=== PATIENT | male | born 1960 ===

== ENCOUNTER 2022-02-15 15:12 | Emergency (ER) | payer SELFPAY ==
[2022-02-15 15:17] VITALS: BP 108/60
[2022-02-15 17:07] LABS: Hematocrit 49.4 % (35.5-45.6); Hemoglobin 16.3 gm/dl (11.8-15.2); Mean Corpuscular HGB Conc 33 % (32-34); Mean Corpuscular Volume 101 fl (84-94); Platelet Count 277 K/mm3 (140-440); Red Blood Count 4.89 M/mm3 (3.65-5.03); Red Cell Distribution Width 12.8 % (13.2-15.2)
[2022-02-15 17:33] LABS: Alanine Aminotransferase 17 units/L (7-56); Albumin 4.7 g/dL (3.9-5); BUN/Creatinine Ratio 9; Blood Urea Nitrogen 7 mg/dL (9-20); Calcium 9.4 mg/dL (8.4-10.2); Hemolysis Index 7
[2022-02-15 17:34] LABS: Bilirubin,Direct < 0.2 mg/dL (0-0.2)
[2022-02-16 02:52] LABS: Basophils % (Manual) 0 % (0.0-1.8); Eosinophils % (Manual) 0 % (0.0-4.3); Monocytes % (Manual) 0 % (0.0-7.3); Total Cells Counted 100
[2022-02-16 02:53] LABS: Anisocytosis 1+; Platelet Estimate Consistent w Auto
== END 2022-02-16 20:36 | disposition left against medical advice (07) ==
LOC: ED 15:12
DX: R10.9 Unspecified abdominal pain (principal); R11.2 Nausea with vomiting, unspecified; Z53.21 Procedure and treatment not carried out due to patient leaving prior to being seen by health care provider
CPT/HCPCS: 36415; 80048; 80076; 83690; 85007; 85025